=== PATIENT | male | born 1970 | race Hispanic/Latino ===

== ENCOUNTER 2017-10-22 15:40 | Emergency (ER) | payer OTHER, SELFPAY ==
[2017-10-22 16:04] LABS: #Basophils 0.1 thou/uL (0.0-0.2); #Eosinphils 0.2 thou/uL (0.0-0.7); #Lymphocytes 1.2 thou/uL (1.20-3.40); #Monocytes 0.9 thou/uL (0.11-0.59); #Neutrophils 6.7 thou/uL (1.40-6.50); %Basophils 0.7 % (0.0-1.0); %Eosinophils 2.2 % (0.0-10.0); %Lymphocytes 13.4 % (21.0-51.0); %Neutrophils 73.7 % (42.0-75.0); Hemoglobin 13.4 g/dL (14.0-18.0); Mean Corpuscular HGB CONC 34.4 g/dL (32.0-36.0); Mean Corpuscular Hemoglobin 35.4 pg (27.0-31.0); Platelet Count 160 thou/uL (130-400); RBC Distribution Width 11.5 % (11.5-14.5); Red Blood Cell (RBC) Count 3.78 mill/uL (4.70-6.10)
[2017-10-22 16:25] LABS: ALT (SGPT) 105 U/L (8-55); AST (SGOT) 103 U/L (5-34); Albumin 4.6 g/dL (3.5-5.0); Alkaline Phosphatase 79 U/L (40-150); Anion Gap 17 mmol/L (10-20); BUN (Urea Nitrogen) 9 mg/dL (8.9-20.6); Bilirubin, Total 0.5 mg/dL (0.2-1.2); Calc. Creatinine Clearance 0 mL/min (70-130); Calcium 9.2 mg/dL (7.8-10.44); Carbon Dioxide 20 mmol/L (22-29); Chloride 106 mmol/L (98-107); Estimated GFR-MDRD Greater than 90; Globulin 2.5 g/dL (2.4-3.5); Glucose 92 mg/dL (70-105); Potassium 5.2 mmol/L (3.5-5.1); Protein, Total 7.1 g/dL (6.0-8.3); Sodium 138 mmol/L (136-145)
--- NOTE | 2017-10-22 16:29 | CT ---
CT BRAIN WITHOUT CONTRAST: Date: 10/22/17 HISTORY: Fall. Level II trauma. Blurry vision. Right facial numbness. Positive loss of consciousness. FINDINGS: Comparison made with exam of 02/27/13. No evidence of acute infarct, hemorrhage, midline shift, or abnormal extra-axial fluid collections ar e seen. The ventricular size is appropriate and the basilar cisterns are patent. The bony calvarium a ppears intact. There are fractures involving the right orbit with soft tissue air within the right or bit and in the right periorbital region. IMPRESSION: 1. No CT evidence of acute intracranial process. 2. Right orbital fractures. Please see dedicated facial CT report. Discussed over the telephone with ER physician, Dr. Hickey, at 1614 hours. CODE CR. POS: CARIN
--- NOTE | 2017-10-22 16:44 | CT ---
CT FACIAL BONES: 10/22/2017 HISTORY: The patient fell and hit eye. Blurry vision and right facial numbness. Positive LOC. FINDINGS: There is an orbital floor fracture on the right, with herniation of the orbital contents through the orbital floor defect, which includes orbital fat and what appears to be the inferior rectus muscle, a lso extending into this defect. There is gas seen within the right orbit, related to the orbital rachelle or fracture. The globe is intact and symmetric to the contralateral left globe. No intraorbital hem atoma or significant stranding is present. There is a defect in the right medial orbital wall. This defect is not appreciated on the CT scan of 02/27/2013, and fat extends into the defect, but no definite fluid is seen in the adjacent ethmoid a ir cells. This was not present on the prior study, suggesting this may be more remote in origin as o pposed to an acute focal right medial orbital wall fracture. No addition fracture is seen. The temporomandibular joints are normally located. The mastoid air ce lls are clear. There is mild right periorbital subcutaneous soft tissue swelling. No acute nasal bone fracture is a ppreciated. While there is slight irregularity of a portion of the nasal bone, this is stable compar ed to a study in 2012. IMPRESSION: 1. Right orbital floor fracture with intraorbital contents extending through the defect, including o rbital fat, as well as inferior rectus muscle. Fracture fragments also extend into the right maxilla ry antrum. 2. Focal defect within the right medial orbital wall. The defect was not seen on the prior study in 2012, which suggests an interval injury, but there is no fluid within the adjacent ethmoid air cells to suggest this represents a more acute fracture. Minimal mucosal thickening is seen in a few ethmo id air cells. 3. Subcutaneous emphysema, as well as gas within the right orbit, related to the orbital floor fract ure. There is right infraorbital and, to a lesser degree, right periorbital subcutaneous soft tissue swelling. The above findings were discussed with Dr. Lockhart in the emergency department on 10/22/2017 at 1616 hours. CODE CR POS: CARIN
== END 2017-10-22 16:32 | disposition home or self-care (01) ==
LOC: ERS 15:40
DX: S02.31XA Fracture of orbital floor, right side, initial encounter for closed fracture (principal); S06.0X1A Concussion with loss of consciousness of 30 minutes or less, initial encounter; S01.111A Laceration without foreign body of right eyelid and periocular area, initial encounter; F17.210 Nicotine dependence, cigarettes, uncomplicated; W01.198A Fall on same level from slipping, tripping and stumbling with subsequent striking against other object, initial encounter
CPT/HCPCS: 70450; 70486; 80053; 85025

== ENCOUNTER 2019-05-15 19:01 | Emergency (ER) | payer SELFPAY ==
--- NOTE | 2019-05-15 20:46 | RAD ---
Right wrist 3 views: 05/15/2019 COMPARISON: None available HISTORY: Cold and numb fourth and fifth fingers FINDINGS: No fracture or dislocation. No radiopaque foreign body or subcutaneous gas. There appears t o be an old fracture of the fifth metacarpal shaft. IMPRESSION: No acute findings.
--- NOTE | 2019-05-15 20:47 | RAD ---
3 views right hand: 05/15/2019 COMPARISON: None HISTORY: Numbness and cold feeling/tingling of fourth and fifth fingers FINDINGS: No fracture or dislocation. No radiopaque foreign body or subcutaneous gas. Old fracture of fifth metacarpal shaft. 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 IMPRESSION: No acute findings.
== END 2019-05-15 20:54 | disposition home or self-care (01) ==
LOC: ERS 19:01
DX: S64.01XA Injury of ulnar nerve at wrist and hand level of right arm, initial encounter (principal); F43.10 Post-traumatic stress disorder, unspecified; F17.210 Nicotine dependence, cigarettes, uncomplicated; W22.8XXA Striking against or struck by other objects, initial encounter; Y99.0 Civilian activity done for income or pay

== ENCOUNTER 2022-12-20 21:10 | Inpatient (IN) | payer SELFPAY ==
[2022-12-20 21:46] LABS: Bacteria/HPF None Seen HPF (None Seen); Bilirubin Negative (Negative); Blood, Urine Negative (Negative); CAUTI Indications for Culture Pelvic or flank pain; Clarity Clear (Clear); Glucose, Urine (Dipstick) Normal (Negative); Ketone, Urine Negative (Negative); Leukocyte Negative Leu/uL (Negative); Nitrite Negative (Negative); Protein, Urine (Dipstick) 10 mg/dL (Neg-Trace); RBC/HPF None Seen HPF (0-3); Specific Gravity, Urine 1.004 (1.002-1.036); Squamous Epithelial None Seen HPF (0-3); Urobilinogen Normal mg/dL (Less than 2); WBC/HPF None Seen HPF (0-3)
[2022-12-20 21:48] LABS: Urine Culture Reflex No No
[2022-12-20 21:49] LABS: #Basophils 0.1 thou/uL (0.0-0.2); #Eosinphils 0.2 thou/uL (0.0-0.7); #Monocytes 1.2 thou/uL (0.11-0.59); #Neutrophils 4.4 thou/uL (1.40-6.50); %Eosinophils 2.8 % (0.0-10.0); %Lymphocytes 23.8 % (21.0-51.0); %Monocytes 15.3 % (0.0-10.0); %Neutrophils 56.7 % (42.0-75.0); Hemoglobin 13.1 g/dL (14.0-18.0); Mean Corpuscular HGB CONC 34.5 g/dL (32.0-36.0); Mean Corpuscular Hemoglobin 33.6 pg (27.0-31.0); Mean Corpuscular Volume 97.4 fl (78.0-98.0); Mean Platelet Volume 10.2 fL (7.4-10.4); Platelet Count 243 10x3/uL (130-400); RBC Distribution Width 13.1 % (11.5-14.5); White Blood Cell (WBC) Count 7.8 10x3/uL (4.8-10.8)
[2022-12-20 22:13] LABS: ALT (SGPT) 47 U/L (8-55); AST (SGOT) 61 U/L (5-34); Albumin 4.8 g/dL (3.5-5.0); Alkaline Phosphatase 59 U/L (40-110); Anion Gap 16 mmol/L (10-20); BUN (Urea Nitrogen) 7 mg/dL (8.4-25.7); Bilirubin, Total 0.4 mg/dL (0.2-1.2); Calc. Creatinine Clearance 0 mL/min (70-130); Calcium 9.6 mg/dL (7.8-10.44); Carbon Dioxide 25 mmol/L (22-29); Chloride 100 mmol/L (98-107); Estimated GFR 105; Globulin 3.2 g/dL (2.4-3.5); Glucose 90 mg/dL (70-105); Lipase 50 U/L (8-78); Potassium 4.4 mmol/L (3.5-5.1); Sodium 137 mmol/L (136-145)
[2022-12-20 22:15] LABS: Troponin I Less than 0.010 ng/mL (< 0.028)
[2022-12-21] MEDS ORDERED: Nicotine 14 MG PATCH ONE (00:34)
[2022-12-21] MEDS ORDERED: Acetaminophen 500 MG TAB ONE (00:40)
[2022-12-21] MEDS ORDERED: Lorazepam 1 MG TAB PO PRN (01:24)
[2022-12-21] MEDS ORDERED: Ondansetron ODT 4 MG TAB PO PRN (01:24)
[2022-12-21] MEDS ORDERED: Lorazepam 2 MG/ML VIAL IM PRN (01:24)
[2022-12-21] MEDS ORDERED: Electrolyte Replacement Protocol 1 EACH FS SCH (01:30)
[2022-12-21] MEDS ORDERED: Thiamine HCl 200 MG/2 ML VIAL SLOW IVP SCH ×2 (02:15→21:00)
[2022-12-21 02:26] LABS: ALT (SGPT) 44 U/L (8-55); AST (SGOT) 52 U/L (5-34); Albumin 4.3 g/dL (3.5-5.0); Alkaline Phosphatase 56 U/L (40-110); Anion Gap 19 mmol/L (10-20); BUN (Urea Nitrogen) 6 mg/dL (8.4-25.7); Bilirubin, Total 0.4 mg/dL (0.2-1.2); Calc. Creatinine Clearance 117 mL/min (70-130); Calcium 9.3 mg/dL (7.8-10.44); Carbon Dioxide 21 mmol/L (22-29); Chloride 104 mmol/L (98-107); Estimated GFR 108; Glucose 80 mg/dL (70-105); Magnesium 1.9 mg/dL (1.6-2.6); Phosphorus 4.5 mg/dL (2.3-4.7); Potassium 4.5 mmol/L (3.5-5.1); Protein, Total 7.3 g/dL (6.0-8.3); Sodium 139 mmol/L (136-145)
[2022-12-21 02:28] LABS: Troponin I Less than 0.010 ng/mL (< 0.028)
[2022-12-21 05:04] LABS: Hemoglobin A1c 5.1 % (4.0-6.0)
[2022-12-21 05:21] LABS: Cardiac Risk 1.8 (Less than 4.5)
[2022-12-21 05:26] LABS: Troponin I Less than 0.010 ng/mL (< 0.028)
[2022-12-21 05:46] LABS: Thyroid Stimulating Hormone 2.4174 uIU/mL (0.35-4.94)
[2022-12-21] MEDS ORDERED: Aspirin Chewable 81 MG TAB ONE (07:55)
[2022-12-21] MEDS ORDERED: Folic Acid 1 MG TAB ONE (07:55)
[2022-12-21] MEDS ORDERED: Magnesium 2 GM/50 ML BAG (IN WATER) ONE (07:55)
[2022-12-21] MEDS ORDERED: Magnesium 2 GM/50 ML(in water) 2 GM in Premix Bag 1 BAG IVPB SCH (08:00)
[2022-12-21] MEDS: Folic Acid 1 MG TAB PO SCH (08:03)
[2022-12-21] MEDS: Aspirin 81 mg Enteric Coated Tablet PO SCH (08:03)
[2022-12-21] MEDS: Multivit, Therapeutic 1 TAB PO SCH (08:45)
[2022-12-21 10:57] LABS: Amphetamine Not Detected (NotDetected); Barbiturates Screen Not Detected (NotDetected); Benzodiazepine Screen Not Detected (NotDetected); Cocaine Metabolite Screen Not Detected (NotDetected); Methadone Not Detected (NotDetected); Methamphetamine Not Detected (NotDetected); Opiate Screen Not Detected (NotDetected); Oxycodone Screen Not Detected (NotDetected); Phencyclidine (PCP) Not Detected (NotDetected); THC/Cannabinoid Screen Detected (NotDetected); Tricyclic Screen Not Detected (NotDetected)
[2022-12-21 11:12] LABS: Syphilis Antibody Nonreactive (Nonreactive); Syphilis Antibody Index 0.04 S/CO (<1.00 Non-Reactive)
[2022-12-21 15:15] VITALS: BMI 19.3
[2022-12-21] MEDS: Atorvastatin Calcium 40 MG TAB PO SCH (19:49)
[2022-12-22] MEDS ORDERED: Lorazepam 1 MG TAB PO PRN (01:24)
[2022-12-22 04:19] LABS: #Basophils 0.1 thou/uL (0.0-0.2); #Eosinphils 0.4 thou/uL (0.0-0.7); #Monocytes 1.2 thou/uL (0.11-0.59); %Basophils 0.9 % (0.0-1.0); %Eosinophils 4.3 % (0.0-10.0); %Lymphocytes 17.6 % (21.0-51.0); %Monocytes 14.5 % (0.0-10.0); %Neutrophils 62.3 % (42.0-75.0); Hematocrit 40.5 % (42.0-52.0); Hemoglobin 13.7 g/dL (14.0-18.0); Mean Corpuscular HGB CONC 33.8 g/dL (32.0-36.0); Mean Corpuscular Hemoglobin 33.6 pg (27.0-31.0); Mean Corpuscular Volume 99.3 fl (78.0-98.0); Mean Platelet Volume 10.6 fL (7.4-10.4); Platelet Count 237 10x3/uL (130-400); RBC Distribution Width 13.2 % (11.5-14.5); Red Blood Cell (RBC) Count 4.08 mill/uL (4.70-6.10); White Blood Cell (WBC) Count 8.1 10x3/uL (4.8-10.8)
[2022-12-22 04:49] LABS: Anion Gap 14 mmol/L (10-20); BUN (Urea Nitrogen) 16 mg/dL (8.4-25.7); Calc. Creatinine Clearance 77 mL/min (70-130); Calcium 9.7 mg/dL (7.8-10.44); Carbon Dioxide 27 mmol/L (22-29); Chloride 103 mmol/L (98-107); Estimated GFR 103; Glucose 89 mg/dL (70-105); Potassium 4.9 mmol/L (3.5-5.1); Sodium 139 mmol/L (136-145)
[2022-12-22] MEDS ORDERED: Acetaminophen 325 MG TAB PO PRN ×2 (08:18→08:19)
[2022-12-22] MEDS: Multivit, Therapeutic 1 TAB PO SCH (09:21)
[2022-12-22] MEDS: Folic Acid 1 MG TAB PO SCH (09:21)
[2022-12-22] MEDS: Aspirin 81 mg Enteric Coated Tablet PO SCH (09:21)
[2022-12-22] MEDS: Famotidine 20 MG TAB PO SCH ×2 (09:21→21:30)
[2022-12-22] MEDS: Atorvastatin Calcium 40 MG TAB PO SCH (21:30)
[2022-12-23] MEDS ORDERED: Lorazepam 1 MG TAB PO PRN (01:24)
[2022-12-23 03:26] VITALS: TEMP 98.1
[2022-12-23 05:03] LABS: #Basophils 0.1 thou/uL (0.0-0.2); #Eosinphils 0.3 thou/uL (0.0-0.7); #Monocytes 1.1 thou/uL (0.11-0.59); #Neutrophils 4.9 thou/uL (1.40-6.50); %Basophils 0.7 % (0.0-1.0); %Eosinophils 3.7 % (0.0-10.0); %Lymphocytes 21.2 % (21.0-51.0); %Monocytes 13.5 % (0.0-10.0); %Neutrophils 60.5 % (42.0-75.0); Hemoglobin 13.1 g/dL (14.0-18.0); Mean Corpuscular HGB CONC 33.6 g/dL (32.0-36.0); Mean Corpuscular Volume 101.3 fl (78.0-98.0); Mean Platelet Volume 10.7 fL (7.4-10.4); Platelet Count 216 10x3/uL (130-400); RBC Distribution Width 13.1 % (11.5-14.5); Red Blood Cell (RBC) Count 3.85 mill/uL (4.70-6.10); White Blood Cell (WBC) Count 8.2 10x3/uL (4.8-10.8)
[2022-12-23 05:32] LABS: Anion Gap 15 mmol/L (10-20); BUN (Urea Nitrogen) 13 mg/dL (8.4-25.7); Calc. Creatinine Clearance 70 mL/min (70-130); Calcium 9.5 mg/dL (7.8-10.44); Carbon Dioxide 25 mmol/L (22-29); Chloride 104 mmol/L (98-107); Estimated GFR 94; Glucose 91 mg/dL (70-105); Potassium 4.1 mmol/L (3.5-5.1); Sodium 140 mmol/L (136-145)
[2022-12-23 08:19] VITALS: BP 139/89
[2022-12-23] MEDS: Folic Acid 1 MG TAB PO SCH (09:18)
[2022-12-23] MEDS: Aspirin 81 mg Enteric Coated Tablet PO SCH (09:18)
[2022-12-23] MEDS: Multivit, Therapeutic 1 TAB PO SCH (09:18)
[2022-12-23] MEDS: Famotidine 20 MG TAB PO SCH (09:18)
[2022-12-24] MEDS ORDERED: Lorazepam 0.5 MG TAB PO PRN (01:24)
[2022-12-24] MEDS ORDERED: Thiamine 100 MG TAB PO SCH (09:00)
== END 2022-12-23 11:42 | disposition home or self-care (01) | DRG 93 ==
LOC: ERS 21:10 → ERHOLD 12-21 01:16 → 2SE 12-21 01:16 → OBSVTOIN 12-22 15:45
PROVIDERS: ADMIT Student in an Organized Health Care Education/Training Program; ATTEND Internal Medicine
DX: R20.2 Paresthesia of skin (principal); R07.9 Chest pain, unspecified; F17.210 Nicotine dependence, cigarettes, uncomplicated; F10.20 Alcohol dependence, uncomplicated; F43.10 Post-traumatic stress disorder, unspecified; R10.12 Left upper quadrant pain; Z79.82 Long term (current) use of aspirin; Z79.899 Other long term (current) drug therapy; Z71.41 Alcohol abuse counseling and surveillance of alcoholic; Z87.820 Personal history of traumatic brain injury; Z88.0 Allergy status to penicillin; Z82.3 Family history of stroke; M51.36 Other intervertebral disc degeneration, lumbar region
CPT/HCPCS: 36415; 70450; 70551; 71045; 72072; 72100; 72125; 74177; 80048; 80053; 80061; 80306; 81001; 82607; 83036; 83690; 83735; 84100; 84443; 84484; 85025; 86780; 93005; 93306; 93880; 94760; 96374; 96375; 96376; G0378; J3411; J3475

== ENCOUNTER 2023-03-09 22:53 | Emergency (ER) | payer SELFPAY ==
[2023-03-09 23:40] LABS: Bacteria/HPF None Seen HPF (None Seen); Bilirubin Negative (Negative); Blood, Urine Negative (Negative); CAUTI Indications for Culture Alt mental st,lethar; Clarity Clear (Clear); Glucose, Urine (Dipstick) Normal (Negative); Ketone, Urine Negative (Negative); Leukocyte Negative Leu/uL (Negative); Nitrite Negative (Negative); Protein, Urine (Dipstick) Negative (Neg-Trace); RBC/HPF None Seen HPF (0-3); Specific Gravity, Urine 1.003 (1.002-1.036); Squamous Epithelial None Seen HPF (0-3); Urobilinogen Normal mg/dL (Less than 2); WBC/HPF None Seen HPF (0-3); pH, Urine 5.5 (5.0-9.0)
[2023-03-09 23:42] LABS: Urine Culture Reflex No No
[2023-03-09 23:48] LABS: Amphetamine Not Detected (NotDetected); Barbiturates Screen Not Detected (NotDetected); Benzodiazepine Screen Not Detected (NotDetected); Cocaine Metabolite Screen Not Detected (NotDetected); Methadone Not Detected (NotDetected); Methamphetamine Not Detected (NotDetected); Opiate Screen Not Detected (NotDetected); Oxycodone Screen Not Detected (NotDetected); Phencyclidine (PCP) Not Detected (NotDetected); THC/Cannabinoid Screen Not Detected (NotDetected); Tricyclic Screen Not Detected (NotDetected)
[2023-03-09 23:54] LABS: #Basophils 0.1 thou/uL (0.0-0.2); #Eosinphils 1.1 thou/uL (0.0-0.7); #Neutrophils 7.2 thou/uL (1.40-6.50); %Basophils 0.8 % (0.0-1.0); %Eosinophils 9.6 % (0.0-10.0); %Lymphocytes 18.9 % (21.0-51.0); %Monocytes 8.2 % (0.0-10.0); %Neutrophils 61.8 % (42.0-75.0); Hematocrit 39.9 % (42.0-52.0); Hemoglobin 13.7 g/dL (14.0-18.0); Mean Corpuscular HGB CONC 34.3 g/dL (32.0-36.0); Mean Corpuscular Hemoglobin 34.4 pg (27.0-31.0); Mean Corpuscular Volume 100.3 fl (78.0-98.0); Mean Platelet Volume 9.8 fL (7.4-10.4); Platelet Count 244 10x3/uL (130-400); RBC Distribution Width 13.4 % (11.5-14.5); Red Blood Cell (RBC) Count 3.98 mill/uL (4.70-6.10); White Blood Cell (WBC) Count 11.6 10x3/uL (4.8-10.8)
[2023-03-10 00:17] LABS: Acetaminophen Less than 10 mcg/mL (10.0-30.0); Alcohol 288.3 mg/dL (Less than 10); Salicylate Less than 8.0 mg/dL (15.0-30.0)
[2023-03-10 00:18] LABS: ALT (SGPT) 39 U/L (8-55); AST (SGOT) 58 U/L (5-34); Albumin 4.5 g/dL (3.5-5.0); Alcohol 289.8 mg/dL (Less than 10); Alkaline Phosphatase 65 U/L (40-110); Anion Gap 15 mmol/L (10-20); BUN (Urea Nitrogen) 8 mg/dL (8.4-25.7); Bilirubin, Total 0.2 mg/dL (0.2-1.2); Calc. Creatinine Clearance 0 mL/min (70-130); Calcium 9.1 mg/dL (7.8-10.44); Carbon Dioxide 21 mmol/L (22-29); Chloride 105 mmol/L (98-107); Estimated GFR 107; Glucose 103 mg/dL (70-105); Potassium 4.1 mmol/L (3.5-5.1); Protein, Total 7.5 g/dL (6.0-8.3); Sodium 137 mmol/L (136-145)
[2023-03-10] MEDS ORDERED: Nicotine 21 MG PATCH TOP SCH (07:45)
== END 2023-03-10 10:09 | disposition home or self-care (01) ==
LOC: ERS 22:53
DX: F10.129 Alcohol abuse with intoxication, unspecified (principal); F17.210 Nicotine dependence, cigarettes, uncomplicated; Z59.00 Homelessness unspecified; Y90.3 Blood alcohol level of 60-79 mg/100 ml
CPT/HCPCS: 36415; 80053; 80306; 80307; 81001; 84443; 85025; 99285